=== PATIENT | female | born 1955 | race Two or more races ===

== ENCOUNTER 2023-08-12 13:38 | Emergency (ER) | payer OTHER ==
[~2023-08-12] VITALS: Ht 152.4 cm; Wt 59.0 kg
[2023-08-12] MEDS ORDERED: ACETAMINOPHEN 325 MG TABLET PO ONE (14:30)
[2023-08-12] MEDS ORDERED: CYCLOBENZAPRINE 10 MG TABLET PO ONE (14:30)
[2023-08-12] MEDS ORDERED: CYCLOBENZAPRINE 10 MG TABLET ONE (14:38)
[2023-08-12] MEDS ORDERED: ACETAMINOPHEN 325 MG TABLET ONE (14:38)
[2023-08-12] MEDS ORDERED: CYCL5TAB PO (17:43)
[2023-08-12] MEDS ORDERED: TYL2T PO (17:43)
[2023-08-12 17:53] VITALS: BP 135/80; TEMP 98.3; O2SAT 97
== END 2023-08-12 17:50 | disposition home or self-care (01) ==
LOC: ER 13:45
DX: S29.8XXA Other specified injuries of thorax, initial encounter (principal); S39.82XA Other specified injuries of lower back, initial encounter; S19.89XA Other specified injuries of other specified part of neck, initial encounter; R07.81 Pleurodynia; M25.521 Pain in right elbow; V89.2XXA Person injured in unspecified motor-vehicle accident, traffic, initial encounter; Y93.89 Activity, other specified; Y92.89 Other specified places as the place of occurrence of the external cause; Y99.8 Other external cause status
CPT/HCPCS: 70450-TC; 71100-TC; 72125-TC; 72128-TC; 72131-TC; 73080-TC